=== PATIENT | female | born 1970 | race Two or more races ===

== ENCOUNTER 2020-09-30 10:10 | Day surgery (SDC) | payer OTHER | END 2020-09-30 16:50 | disposition home or self-care (01) | LOC: AMB-ENDOS 10:10 | PROVIDERS: ATTEND Internal Medicine Gastroenterology | DX: K80.20 Calculus of gallbladder without cholecystitis without obstruction (principal); Z20.822 Contact with and (suspected) exposure to COVID-19 ==

== ENCOUNTER 2020-09-30 11:04 | Outpatient (CLI) | payer OTHER | END 2020-09-30 11:05 | disposition home or self-care (01) | LOC: LAB 11:04 | PROVIDERS: ATTEND Internal Medicine Gastroenterology | DX: Z11.52 Encounter for screening for COVID-19 (principal) ==